=== PATIENT | female | born 1985 | race African-American/Black ===

== ENCOUNTER 2017-05-02 10:39 | Day surgery (SDC) | payer OTHER ==
[~2017-05-02] VITALS: Ht 167.6 cm; Wt 76.1 kg
[~2017-05-02 10:39] MED LIST: AMOXICILLIN500 M1 PO; ATARAX,VISTARIL25 MG PO; BUPROPION XL150 MG PO; HALOPERIDOL10 MG PO; QUETIAPINE FUM300 MG PO; ROBITUSSIN100 MG/5 M PO; ZOFRAN8 MG PO
[2017-05-02 11:23] LABS: ADD MIUA? YES; BILIRUBIN NEGATIVE; BLOOD NEGATIVE; COLOR YELLOW ((YELLOW)); GLUCOSE (STRIP) NEGATIVE; KETONES 20; LEUKOCYTES TRACE; NITRITE NEGATIVE; PROTEIN (STRIP) 30; SPECIFIC GRAVITY 1.018 (1.000-1.030); UROBILINOGEN 0.2 MG/DL (0.2-1.0)
[2017-05-02 11:58] LABS: BACTERIA RARE /HPF; EPITHELIAL CELLS RARE /HPF; MUCUS TRACE /LPF; RED BLOOD CELLS 0-5 /HPF (0-5); UCUL ADDED? NO; UNCLASSIFIED CRYSTALS 1+ /HPF
[2017-05-02 13:21] LABS: HEMATOCRIT 45.2 % (36.0-46.0); MCH 26.8 PG (29.0-34.0); MCV 86.6 FL (83-99); MEAN PLAT.VOLUME 9.7 uM^3 (9.5-12.4); NRBC (%) 0.1 /100 WBC (0-0); PLATELET COUNT 277 K/uL (156-360); RBC DIS.WIDTH-CV 13.8 % (11.8-14.6); RED BLOOD COUNT 5.22 M/uL (3.80-5.20); WHITE BLOOD COUNT 13.9 K/uL (4.1-10.2)
[2017-05-02 13:56] LABS: CHLORIDE 105 mEq/L (99-109); POTASSIUM 3.3 mEq/L (3.7-5.4); SODIUM 137 mEq/L (136-147)
[2017-05-02 13:59] LABS: GLUCOSE 96 mg/dL (70-99)
[2017-05-02 14:00] LABS: ANION GAP 12 MEQ/L (2-14)
[2017-05-02 14:01] LABS: TOTAL BILIRUBIN 0.3 mg/dL (0.0-1.0)
[2017-05-02 14:02] LABS: ALKALINE PHOSPHATASE 74 IU/L (3-129); GFR ESTIMATE (CALCULATED) > 59 mL/min/
[2017-05-02 14:03] LABS: UREA NITROGEN (BUN) 9 mg/dL (9-23)
[2017-05-02 14:06] LABS: LIPASE 12 U/L (1.0-51.0)
[2017-05-02 14:12] LABS: QUANTITATIVE HCG < 4.0 MIU/ML
[2017-05-02 21:40] VITALS: BP 134/93
[2017-05-03 03:33] VITALS: BP 118/78
[2017-05-03 07:00] VITALS: BP 127/84
[2017-05-03] MEDS ORDERED: NORCO 5/3251 TABLET PO (09:58)
[2017-05-03] MEDS ORDERED: CIPRO500 MG PO (09:58)
== END 2017-05-03 11:11 | disposition home or self-care (01) ==
LOC: EME 10:39 → SDC 18:56 → 2SOUTH 20:17 → 2EAST 20:17
PROVIDERS: Physician Assistant
PROC: 0FT44ZZ Resection of Gallbladder, Percutaneous Endoscopic Approach (ICD-10-PCS; principal; 2017-05-02)
DX: K80.12 Calculus of gallbladder with acute and chronic cholecystitis without obstruction (principal); R11.2 Nausea with vomiting, unspecified; K76.0 Fatty (change of) liver, not elsewhere classified
CPT/HCPCS: 76705; 80053; 81003; 83690; 84702; 85027; 88304; 99281; 99284; G0378; J1170; J1885; J2270; J2405; J2710; J2765; J3010; S0020

== ENCOUNTER 2017-06-10 11:45 | Emergency (ER) | payer OTHER ==
[~2017-06-10] VITALS: Ht 167.6 cm; Wt 75.8 kg
[~2017-06-10 11:45] MED LIST changes: +CIPRO500 MG PO; +NORCO 5/3251 TABLET PO
[2017-06-10 12:46] LABS: HEMATOCRIT 44.7 % (36.0-46.0); MCH 26.7 PG (29.0-34.0); MCHC 31.3 G/DL (30.0-36.0); MCV 85.1 FL (83-99); MEAN PLAT.VOLUME 9.2 uM^3 (9.5-12.4); PLATELET COUNT 283 K/uL (156-360); RBC DIS.WIDTH-CV 15.4 % (11.8-14.6); RBC DIS.WIDTH-SD 48.1 % (39-53); RED BLOOD COUNT 5.25 M/uL (3.80-5.20); WHITE BLOOD COUNT 9.1 K/uL (4.1-10.2)
[2017-06-10 13:00] LABS: CHLORIDE 107 mEq/L (99-109); POTASSIUM 3.8 mEq/L (3.7-5.4); SODIUM 140 mEq/L (136-147)
[2017-06-10 13:02] LABS: GLUCOSE 85 mg/dL (70-99)
[2017-06-10 13:03] LABS: ANION GAP 12 MEQ/L (2-14)
[2017-06-10 13:05] LABS: GFR ESTIMATE (CALCULATED) > 59 mL/min/
[2017-06-10 13:06] LABS: UREA NITROGEN (BUN) 19 mg/dL (9-23)
[2017-06-10 13:54] LABS: ADD MIUA? NO; BILIRUBIN NEGATIVE; BLOOD NEGATIVE; COLOR YELLOW ((YELLOW)); GLUCOSE (STRIP) NEGATIVE; KETONES 80; LEUKOCYTES NEGATIVE; NITRITE NEGATIVE; PROTEIN (STRIP) NEGATIVE; SPECIFIC GRAVITY 1.028 (1.000-1.030); UCUL ADDED? NO; UROBILINOGEN 0.2 MG/DL (0.2-1.0)
[2017-06-10] MEDS ORDERED: ZOFRAN8 MG PO (14:02)
[2017-06-10 14:13] VITALS: BP 135/80
== END 2017-06-10 14:13 | disposition home or self-care (01) ==
LOC: EME 11:45
DX: R11.2 Nausea with vomiting, unspecified (principal); R19.7 Diarrhea, unspecified; R53.83 Other fatigue; Z90.49 Acquired absence of other specified parts of digestive tract
CPT/HCPCS: 80048; 81003; 85027; 99281; 99283